=== PATIENT | male | born 1965 | race Asian ===

== ENCOUNTER 2018-07-19 11:40 | Emergency (ER) | payer OTHER ==
[2018-07-19 11:44] VITALS: BP 94/62; PULSE 63; TEMP 98; BMI 20.9
--- NOTE | 2018-07-19 13:13 | PDOC ---
History of Present Illness - General Chief Complaint: Injury Stated Complaint: INJURY, FALL - History of Present Illness Initial Comments: 53-year-old male with a history of dyslipidemia presents for evaluation of left wrist pain headache and nausea after a fall. States he was working slipped on the floor injured his left wrist in his head. He has no visual changes or vomiting post injury just dizziness and nausea. 07/19/18 13:11 Past History - Past Medical History Allergies/Adverse Reactions: Allergies Allergy/AdvReac Type Severity Reaction Status Date / Time No Known Allergies Allergy Verified 07/19/18 11:44 COPD: No Hypercholesterolemia: Yes - Suicide/Smoking/Psychosocial Hx Smoking History: Never smoked Review of Systems - Review of Systems ABD/GI: Yes: Nausea Musculoskeletal: Yes: See HPI, Joint Pain Neurological: Yes: Dizziness All Other Systems: Reviewed and Negative *Physical Exam - Vital Signs Last Vital Signs Temp Pulse Resp BP Pulse Ox 98 F 63 18 94/62 100 07/19/18 11:42 07/19/18 11:42 07/19/18 11:42 07/19/18 11:42 07/19/18 11:42 - Physical Exam Comments: HEAD: NC/AT EYES: Conjuntiva clear, EOMI, PERRL Ears: Canals and TM's normal NOSE: No d/c THROAT: Moist mucous membrances, oral pharanx clear, uvula midline NECK: Supple without adenopathy CARDIAC: S1 S2 LUNGS: CTA Full and Equal breath sounds ABDOMEN: Soft NT ND MS: Full ROM in all joints without edema left wrist is swollen there is tenderness at the distal radius. There are no gross sensorimotor deficits NEUROLOGIC: No gross sensory or motor deficits, NVID SKIN: Normal color and temperature no lesions or rashes 07/19/18 13:12 ED Treatment Course - RADIOLOGY Radiology Studies Ordered: Category Date Time Status HEAD CT WITHOUT CONTRAST [CT] Stat CT Scan 07/19/18 13:10 Ordered WRIST-LEFT [RAD] Stat Radiology 07/19/18 13:10 Ordered Medical Decision Making - Medical Decision Making There is impacted and shortened distal radius fracture without angulation as well as a distal ulnar fracture proximal to the styloid 07/19/18 13:54 07/19/18 14:50 CT head negative *DC/Admit/Observation/Transfer Diagnosis at time of Disposition: Wrist fracture, Closed head injury - Discharge Dispostion Disposition: HOME Condition at time of disposition: Stable Decision to Admit order: No - Referrals Referrals: Deidre Noyola MD [Primary Care Provider] - Juan M José MD [Staff Physician] - - Patient Instructions Printed Discharge Instructions: DI for Closed Head Injury, Wrist Fracture, DI for Wrist Fracture Additional Instructions: Return to the emergency room should you have any nausea vomiting or increasing headache. Follow-up with her primary care physician for further evaluation and treatment options of your closed head injury. Her CAT scan today was negative. States to take Tylenol for pain and headache as directed. Follow-up with orthopedic surgery in 2-3 days for further evaluation and treatment options of your left wrist fracture.Keep the splint clean and dry until seen by orthopedic surgery. - Post Discharge Activity
[2018-07-19] MEDS ORDERED: ACETAMINOPHEN 500 MG TABLET (FP) PO ONE (13:25)
[2018-07-19] MEDS ORDERED: ACETAMINOPHEN 500 MG TABLET (FP) ONE (13:33)
== END 2018-07-19 15:04 | disposition home or self-care (01) ==
LOC: JERFT 11:40
PROC: 2W3DX1Z Immobilization of Left Lower Arm using Splint (ICD-10-PCS; principal; 2018-07-19)
DX: S52.592A Other fractures of lower end of left radius, initial encounter for closed fracture (principal); S52.692A Other fracture of lower end of left ulna, initial encounter for closed fracture; S09.8XXA Other specified injuries of head, initial encounter; W01.0XXA Fall on same level from slipping, tripping and stumbling without subsequent striking against object, initial encounter; Y93.89 Activity, other specified; Y92.128 Other place in nursing home as the place of occurrence of the external cause; Y99.0 Civilian activity done for income or pay
CPT/HCPCS: 70450-TC; 73110-TC-LR-FY; 99282-25

== ENCOUNTER 2018-09-29 18:44 | Observation (INO) | payer OTHER ==
[2018-09-29] MEDS ORDERED: ONDANSETRON 4 MG/2 ML VIAL IVPUSH ONE (19:11)
[2018-09-29] MEDS ORDERED: FAMOTIDINE 20 MG/50 ML IVPB 20 MG/50 ML MG IVPB ONE ×2 (19:11→19:23)
[2018-09-29] MEDS ORDERED: SODIUM CHLORIDE 1,000 ML IV STA (19:11)
[2018-09-29] MEDS ORDERED: ONDANSETRON 4 MG/2 ML VIAL ONE (19:23)
[2018-09-29] MEDS ORDERED: ACETAMINOPHEN 1000 MG/100 ML VIAL (NON FORMULARY) IVPB ONE (19:23)
--- NOTE | 2018-09-29 19:23 | PDOC ---
History of Present Illness <ToribioMragareth - Last Filed: 09/29/18 21:37> - General History Source: Patient Exam Limitations: No Limitations - History of Present Illness Initial Comments: 09/29/18 21:20 CHARLETTE 53 YOM with a significant past medical history of HLD presenting with diffuse Abdominal pain, n/v/d x 3 days, multiple episodes and nonbloody. Today a /w generalized malaise, dizziness/lightheadedness, worse with getting up. AP described as achy and dull, diffuse, 4/10, exacerbated by eating food and drinking fluids. [employer] with sob and dizziness. Denies sick contacts or travel history. No antibiotic use. +kimchi intake on Tue night prior to presentation of symptoms. Denies change in urinary output. Denies recent travel. Denies recent antibiotic or medication use. On crestor for HLD. No surgeries. Denies tobacco, etoh or drug use. <Claire Francisco - Last Filed: 09/30/18 00:12> - General Chief Complaint: Nausea/Vomiting Stated Complaint: VOMITING Time Seen by Provider: 09/29/18 19:11 Past History <ToribioMargareth - Last Filed: 09/29/18 21:37> - Past Medical History COPD: No Hypercholesterolemia: Yes - Suicide/Smoking/Psychosocial Hx Smoking History: Never smoked Hx Alcohol Use: No Drug/Substance Use Hx: No Substance Use Type: None <FranciscoClaire Franciscomary - Last Filed: 09/30/18 00:12> - Past Medical History Allergies/Adverse Reactions: Allergies Allergy/AdvReac Type Severity Reaction Status Date / Time No Known Allergies Allergy Verified 07/19/18 11:44 Home Medications: Ambulatory Orders NK [No Known Home Medication] 07/19/18 Review of Systems - Review of Systems Able to Perform ROS?: Yes Comments:: 09/29/18 21:20 GENERAL/CONSTITUTIONAL: No fever or chills. No weakness. no sweats. HEAD, EYES, EARS, NOSE AND THROAT: No change in vision or hearing. No ear pain or discharge. No sore throat or mouth pain. No difficulty swallowing. No congestion. CARDIOVASCULAR: No chest pain or palpitations, syncope or edema. RESPIRATORY: + SOB. No cough, wheezing, or hemoptysis. GASTROINTESTINAL: + abdominal pain, nausea, vomiting, diarrhea. No bloody stools. GENITOURINARY: No hematuria, dysuria, frequency, urgency or other changes. MUSCULOSKELETAL: No joint or muscle swelling or pain. No neck or back pain. SKIN: No rash or changes in skin color or lesions. NEUROLOGIC: + dizziness, lightheadedness. No headache, loss of consciousness, or change in strength/sensation. No gait instability. HEMATOLOGIC/LYMPHATIC: No anemia, easy bruising/bleeding, or history of blood clots. ALLERGIC/IMMUNOLOGIC: No allergies All other systems reviewed and negative, or as documented in HPI. <Claire Francisco - Last Filed: 09/30/18 00:12> *Physical Exam - Vital Signs Last Vital Signs Temp Pulse Resp BP Pulse Ox 97.7 F 92 H 18 102/73 93 L 09/29/18 18:45 09/29/18 18:45 09/29/18 18:45 09/29/18 18:45 09/29/18 18:45 <Margareth Rooney - Last Filed: 09/29/18 21:37> - Vital Signs Last Vital Signs Temp Pulse Resp BP Pulse Ox 97.7 F 92 H 18 102/73 93 L 09/29/18 18:45 09/29/18 18:45 09/29/18 18:45 09/29/18 18:45 09/29/18 18:45 - Physical Exam Comments: 09/29/18 21:21 General: Malaised appearing. HEENT: NCAT, PERRL, EOMI, clear conjunctiva, anicteric, moist mucus membranes, clear oropharynx, no oral lesions.. Neck: neck supple, FROM Resp: CTAB, normal and even respirations, no respiratory distress CVS: RRR, no murmurs, 2+ peripheral pulses throughout, no peripheral edema Abdomen: soft. + voluntary guarding diffusely, +diffuse abdominal tenderness, + tympanic to palp. mildly distended. soft. Back: nontender, normal inspection and ROM/ no CVAT. MSK: no edema, DO x4, ROM intact. No clubbing or cyanosis. normal bulk and tone. Neuro: alert, oriented appropriately; no focal neurologic deficits Skin: warm and well perfused, cap refill <2 sec, normal color <Claire Francisco - Last Filed: 09/30/18 00:12> Heart Score/ECG Review - ECG Impressions Normal ECG: No Comment:: 09/29/18 21:44 EKG normal sinus rhythm, prolonged QT, narrow QRS, ST and T wave segments and morphology normal. TWI in precordial leads, V1-6, nonspecific flattening in I, AVL, no prior ekg. 09/29/18 23:24 <Claire Francisco - Last Filed: 09/30/18 00:12> ED Treatment Course - LABORATORY CBC & Chemistry Diagram: 09/29/18 19:15 09/29/18 19:15 - ADDITIONAL ORDERS Additional order review: Laboratory Results 09/29/18 19:15 Sodium 127 L Potassium 5.3 H Chloride 96 L Carbon Dioxide 18 L Anion Gap 13 BUN 34 H Creatinine 1.8 H Creat Clearance w eGFR 39.98 Random Glucose 116 H Calcium 9.9 Total Bilirubin 1.5 H AST 83 H ALT 74 H Alkaline Phosphatase 132 H Total Protein 9.3 H Albumin 4.8 Lipase 210 09/29/18 19:15 RBC 5.19 MCV 89.8 MCHC 33.8 RDW 13.4 MPV 7.7 Neutrophils % No Result Required. Lymphocytes % No Result Required. - Medications Given in the ED: ED Medications Discontinued Medications Generic Name Dose Route Start Last Admin Trade Name Dyana PRN Reason Stop Dose Admin Acetaminophen 1,000 mg 09/29/18 19:23 09/29/18 19:37 Ofirmev Injection - IVPB 09/29/18 19:24 1,000 mg ONCE ONE Administration Famotidine/Sodium Chloride 20 mg in 50 mls @ 100 mls/hr 09/29/18 19:11 19:30 Pepcid 20 Mg Premixed Ivpb - IVPB 09/29/18 19:40 100 mls/hr ONCE ONE Administration Sodium Chloride 1,000 mls @ 1,000 mls/hr 09/29/18 19:11 09/29/18 19:15 Normal Saline - IV 09/29/18 20:10 1,000 mls/hr ASDIR STA Administration Lactated Ringer's 1,000 ml 09/29/18 20:24 09/29/18 20:36 Lactated Ringers Solution IV 09/29/18 20:25 1,000 ml ONCE ONE Administration Ondansetron HCl 4 mg 09/29/18 19:11 09/29/18 19:25 Zofran Injection IVPUSH 09/29/18 19:12 4 mg ONCE ONE Administration <Margareth Rooney - Last Filed: 09/29/18 21:37> - LABORATORY CBC & Chemistry Diagram: 09/29/18 19:15 09/29/18 19:15 <FranciscoClaire Palacios - Last Filed: 09/30/18 00:12> Medical Decision Making - Medical Decision Making 09/29/18 21:26 MDM: CHARLETTE 53 YOM with no medical history Presenting with diffuse Abdominal pain, voluminous episodes of n/v/d x 3 days. +suspicious food intake. No other sick contacts or travel. DDx abdominal pain: Renal colic, biliary colic, metabolic/electrolyte derangements. GERD, PUD, esophageal spasm, pancreatitis, hepatitis, constipation , colitis, gastroenteritis, cholecystitis, UTI, pyelonephritis, ileus, SBO, medication side effect, hernia, appendicitis, diverticulitis, Vital signs reviewed, wnl. Mildly low sats 93%, likely from pain and poor inspiratory effort. Prior notes reviewed, including admissions, discharges and consultations. laboratory results and imaging reviewed, basic labs and lytes grossly abnormal, otable for +leukocytosis of 13K, STEPHIE with new elevation in Cr (unknown prior, but normal), up to 1.8, c/w prerenal/dehydrated and volume loss state. + hyponatremia, most likely hypovolemic in nature. LFTs mildly elevated. No recent abx use/travel history, lower likelihood of C diff in that setting; however +food precipitant, raising more likelihood of AGE vs acute colitis. lactate normal trop negative, less likely ACS. EKG with TWI in precordials, nonspecific abnormalities; prolonged QT, unknown prior. UA_pending. CXR_clear, no acute pathology visualized. no perf/free air Stool cultures ordered and sent, sample appears yellow and mucoid. ED course: Tylenol for analgesia, with relief down to 3/10. Pepcid, Zofran, 2L IVF for hydration. CT a/p with oral contrast only (new STEPHIE and borderline GFR, risk of renal insufficiency) to r/o intra abdominal pathology, perf, infection, colitis; still appearing malaised and dehydrated with multiple metabolic derangements, so will admit Dispo: admit for hydration, STEPHIE, hyponatremia/electrolyte derangements, colitis vs gastroenteritis. Continued medical management, hydration, supportive care PMD Dr. Houston, admit to hospitalist team, s/o to Dr. Jang 09/30/18 00:11 <Claire Francisco - Last Filed: 09/30/18 00:12> *DC/Admit/Observation/Transfer - Attestations Scribe Attestion: Documentation prepared by ANTONIO Waters, acting as medical coding instructor for Claire Francisco MD. 09/29/18 21:37 <Margareth Rooney - Last Filed: 09/29/18 21:37> - Discharge Dispostion Decision to Admit order: Yes Decision to Admit order Date/Time: 09/29/18 21:30 Decision to Admit Order Category Date Time Status Decision to Admit to Hospital Routine Admission 09/29/18 21:28 Ordered - Attestations Physician Attestion: 09/29/18 19:28 I, Claire Francisco MD, attest that this document has been prepared under my direction and personally reviewed by me in its entirety. I further attest, that it accurately reflects all work, treatment, procedures and medical decision -making performed by me. <Claire Francisco - Last Filed: 09/30/18 00:12> Diagnosis at time of Disposition: STEPHIE (acute kidney injury), Hyponatremia, Dehydration, Nausea vomiting and diarrhea - Discharge Dispostion Condition at time of disposition: Guarded - Referrals Referrals: Ravindra Paez MD [Primary Care Provider] - - Patient Instructions - Post Discharge Activity
[2018-09-29] MEDS ORDERED: ACETAMINOPHEN INJECTION 100 ML IVPB ONE (19:31)
[2018-09-29 19:38] LABS: HEMATOCRIT 46.6 % (35.4-49); HEMOGLOBIN 15.7 GM/dl (11.7-16.9); MCH 30.3 pg (25.7-33.7); MCHC 33.8 g/dl (32.0-35.9); MEAN CELL VOLUME 89.8 fl (80-96); MEAN PLT VOLUME 7.7 fl (7.5-11.1); PLATELET COUNT 381 K/MM3 (134-434); RBC 5.19 M/mm3 (4.00-5.60); RDW 13.4 % (11.9-15.9); WHITE BLOOD COUNT 13.6 K/mm3 (4.0-10.8)
[2018-09-29 19:48] LABS: ALBUMIN 4.8 g/dl (3.5-5.0); ALK PHOS 132 U/L (32-92); ANION GAP 13 MMOL/L (8-16); BILIRUBIN,TOTAL 1.5 mg/dl (0.2-1.0); BLOOD UREA NITROGEN 34 mg/dl (7-18); CALCIUM 9.9 mg/dl (8.4-10.2); CHLORIDE 96 mmol/L (98-107); CO2 18 mmol/L (22-28); CREATININE 1.8 mg/dl (0.6-1.3); GLUCOSE,RANDOM 116 mg/dl (74-106); SGOT/AST 83 U/L (10-42); SGPT/ALT 74 U/L (10-40); SODIUM 127 mmol/L (136-145); TOT PROT 9.3 g/dl (6.4-8.3)
[2018-09-29 19:51] LABS: POTASSIUM 5.3 mmol/L (3.5-5.1)
[2018-09-29] MEDS ORDERED: LACTATED RINGERS SOLUTION 1000 ML INFUS.BAG IV ONE (20:24)
[2018-09-29 20:38] LABS: PLATELET ESTIMATE ADEQUATE
[2018-09-29 21:24] LABS: LIPASE 210 U/L (73-393)
--- NOTE | 2018-09-29 21:56 | HP ---
CHIEF COMPLAINT: diarrhea, nausea, vomiting PCP: Ravindra Paez HISTORY OF PRESENT ILLNESS: 53 YO M with a significant past medical history of HLD presented with diffuse diarrhea, nausea, vomiting x 3 days, multiple episodes and nonbloody, 4 BMs/ day. PAtient reported eating at [place] 2 days before symptom started. No one else ate with him who had same symptoms. No recent travels. Denied any previous electrolyte or kidney problems. Said he had normal blood tests last june with PCP. ER course was notable for: (1) IV fluid hydration (2) Ekg (3) Recent Travel: none PAST MEDICAL HISTORY: high cholesterol PAST SURGICAL HISTORY: none Social History: Smoking: no Alcohol: no Drugs: no Family History: Allergies No Known Allergies Allergy (Verified 07/19/18 11:44) HOME MEDICATIONS: Home Medications Medication Instructions Recorded NK [No Known Home Medication] 07/19/18 REVIEW OF SYSTEMS CONSTITUTIONAL: Absent: fever, chills, diaphoresis, generalized weakness, malaise, loss of appetite, weight change HEENT: Absent: rhinorrhea, nasal congestion, throat pain, throat swelling, difficulty swallowing, mouth swelling, ear pain, eye pain, visual changes CARDIOVASCULAR: Absent: chest pain, syncope, palpitations, irregular heart rate, lightheadedness , peripheral edema RESPIRATORY: Absent: cough, shortness of breath, dyspnea with exertion, orthopnea, wheezing, stridor, hemoptysis GASTROINTESTINAL: Absent: abdominal pain, abdominal distension, constipation, melena, hematochezia Present - nausea, vomiting, diarrhea, GENITOURINARY: Absent: dysuria, frequency, urgency, hesitancy, hematuria, flank pain, genital pain MUSCULOSKELETAL: Absent: myalgia, arthralgia, joint swelling, back pain, neck pain SKIN: Absent: rash, itching, pallor HEMATOLOGIC/IMMUNOLOGIC: Absent: easy bleeding, easy bruising, lymphadenopathy, frequent infections ENDOCRINE: Absent: unexplained weight gain, unexplained weight loss, heat intolerance, cold intolerance NEUROLOGIC: Absent: headache, focal weakness or paresthesias, dizziness, unsteady gait, seizure, mental status changes, bladder or bowel incontinence PSYCHIATRIC: Absent: anxiety, depression, suicidal or homicidal ideation, hallucinations. PHYSICAL EXAMINATION Vital Signs - 24 hr 09/29/18 18:45 Temperature 97.7 F Pulse Rate 92 H Respiratory 18 Rate Blood Pressure 102/73 O2 Sat by Pulse 93 L Oximetry (%) GENERAL: Awake, alert, and fully oriented, in no acute distress. HEAD: Normal with no signs of trauma. EYES: Pupils equal, round and reactive to light, extraocular movements intact, sclera anicteric, conjunctiva clear. No lid lag. EARS, NOSE, THROAT: Ears normal, nares patent, oropharynx clear without exudates. Moist mucous membranes. NECK: Normal range of motion, supple without lymphadenopathy, JVD, or masses. LUNGS: Breath sounds equal, clear to auscultation bilaterally. No wheezes, and no crackles. No accessory muscle use. HEART: Regular rate and rhythm, normal S1 and S2 without murmur, rub or gallop. ABDOMEN: Soft, nontender, not distended, normoactive bowel sounds, no guarding, no rebound, no masses. No hepatomegaly or splenomegaly. MUSCULOSKELETAL: Normal range of motion at all joints. No bony deformities or tenderness. No CVA tenderness. UPPER EXTREMITIES: 2+ pulses, warm, well-perfused. No cyanosis. No clubbing. No peripheral edema. LOWER EXTREMITIES: 2+ pulses, warm, well-perfused. No calf tenderness. No peripheral edema. NEUROLOGICAL: Cranial nerves II-XII intact. Normal speech. Normal gait. PSYCHIATRIC: Cooperative. Good eye contact. Appropriate mood and affect. SKIN: Warm, dry, poor turgor Laboratory Results - last 24 hr 09/29/18 09/29/18 19:15 19:15 WBC 13.6 H RBC 5.19 Hgb 15.7 Hct 46.6 MCV 89.8 MCH 30.3 MCHC 33.8 RDW 13.4 Plt Count 381 MPV 7.7 Absolute Neuts (auto) 9.3 Neutrophils % No Result Required. Neutrophils % (Manual) 78.0 Band Neutrophils % 4.0 Lymphocytes % No Result Required. Lymphocytes % (Manual) 16.0 Eosinophils % (Manual) 2.0 Platelet Estimate Adequate Sodium 127 L Potassium 5.3 H Chloride 96 L Carbon Dioxide 18 L Anion Gap 13 BUN 34 H Creatinine 1.8 H Creat Clearance w eGFR 39.98 Random Glucose 116 H Calcium 9.9 Total Bilirubin 1.5 H AST 83 H ALT 74 H Alkaline Phosphatase 132 H Total Protein 9.3 H Albumin 4.8 Lipase 210 ASSESSMENT/PLAN: 53yo man with likely acute gastroenteritis x3 days complicated by STEPHIE and hyponatremia. Gastroenteritis likely due to food poisoning. Doubt Cdiff as no recent antibiotics. STEPHIE likely prerenal secondary to dehydration. Although no previous labs to compare to baseline, these are probably acute as patient stated he had normal blood tests done at his PCPs office this past June. -admit to med/surg -CT of abdomen/pelvis with PO contrast -if severe inflammation will treat with antibioitics -send lactate -send stool cdiff pcr, culture, wbc count -trend sodium -correct sodium no more than 10meq in 24hrs -IV fluid hydration -LR -hold antiemetics for now as qtc is prolonged -renal U/S -urine lytes/ creatinine -i/o -daily weights -avoid neophrotoxic meds -clear liquid diet and advance as tolerated -heparin sc for dvt ppx Visit type - Emergency Visit Emergency Visit: Yes Care time: The patient presented to the Emergency Department on the above date and was hospitalized for further evaluation of their emergent condition. - New Patient This patient is new to me today: Yes Date on this admission: 09/29/18 - Critical Care Critical Care patient: No
[2018-09-29] MEDS ORDERED: LACTATED RINGERS SOLUTION 1,000 ML IV SCH (23:00)
[2018-09-30] MEDS ORDERED: SODIUM CHLORIDE 1,000 ML IV SCH (00:30)
[2018-09-30 04:42] VITALS: BMI 21.1
[2018-09-30 09:09] LABS: POTASSIUM 3.6 mmol/L (3.5-5.1)
[2018-09-30 09:16] LABS: ALBUMIN 3.5 g/dl (3.5-5.0); ALK PHOS 97 U/L (32-92); ANION GAP 7 MMOL/L (8-16); BILIRUBIN,TOTAL 0.8 mg/dl (0.2-1.0); BLOOD UREA NITROGEN 23 mg/dl (7-18); CALCIUM 8.8 mg/dl (8.4-10.2); CHLORIDE 106 mmol/L (98-107); CO2 20 mmol/L (22-28); CREATININE 1.1 mg/dl (0.6-1.3); GLUCOSE,RANDOM 89 mg/dl (74-106); POTASSIUM 3.6 mmol/L (3.5-5.1); SGOT/AST 45 U/L (10-42); SGPT/ALT 47 U/L (10-40); SODIUM 133 mmol/L (136-145); TOT PROT 6.8 g/dl (6.4-8.3)
[2018-09-30 09:33] LABS: BASO % 0.6 % (0-2.0); EOS % 1.3 % (0-4.5); HEMATOCRIT 33.8 % (35.4-49); HEMOGLOBIN 11.9 GM/dl (11.7-16.9); LYMPH % 19.8 % (8-40); MCH 31.6 pg (25.7-33.7); MCHC 35.3 g/dl (32.0-35.9); MEAN CELL VOLUME 89.8 fl (80-96); MEAN PLT VOLUME 7.4 fl (7.5-11.1); MONO % 5.7 % (3.8-10.2); NEUT % 72.6 % (42.8-82.8); PLATELET COUNT 293 K/MM3 (134-434); RBC 3.77 M/mm3 (4.00-5.60); WHITE BLOOD COUNT 7.7 K/mm3 (4.0-10.8)
[2018-09-30] MEDS: HEPARIN NA (PORCINE) 5,000 UNITS/ML 1ML VIAL SQ SCH ×2 (09:49→21:18)
--- NOTE | 2018-09-30 15:41 | PN ---
Physical Exam: SUBJECTIVE: Patient seen and examined at beside. Had 4 episodes watery diarrhea overnight, 6 more today. OBJECTIVE: Vital Signs Period Temp Pulse Resp BP Sys/[place]valcaba Pulse Ox Last 24 Hr 97.7 F-98.8 F 68-92 16-20 89-108/60-73 93-100 GENERAL: The patient is awake, alert, and fully oriented, in no acute distress. LUNGS: Breath sounds equal, clear to auscultation bilaterally, no wheezes, no crackles, no accessory muscle use. HEART: Regular rate and rhythm, S1, S2 without murmur, rub or gallop. ABDOMEN: Soft, nontender, nondistended, normoactive bowel sounds EXTREMITIES: 2+ pulses, warm, well-perfused, no edema. NEUROLOGICAL: Cranial nerves II through XII grossly intact. Laboratory Results - last 24 hr 09/29/18 09/29/18 09/29/18 19:15 19:15 22:01 WBC 13.6 H RBC 5.19 Hgb 15.7 Hct 46.6 MCV 89.8 MCH 30.3 MCHC 33.8 RDW 13.4 Plt Count 381 MPV 7.7 Absolute Neuts (auto) 9.3 Neutrophils % No Result Required. Neutrophils % (Manual) 78.0 Band Neutrophils % 4.0 Lymphocytes % No Result Required. Lymphocytes % (Manual) 16.0 Monocytes % Eosinophils % Eosinophils % (Manual) 2.0 Basophils % Platelet Estimate Adequate Sodium 127 L Potassium 5.3 H Chloride 96 L Carbon Dioxide 18 L Anion Gap 13 BUN 34 H Creatinine 1.8 H Creat Clearance w eGFR 39.98 Random Glucose 116 H Lactic Acid 1.8 Calcium 9.9 Total Bilirubin 1.5 H AST 83 H ALT 74 H Alkaline Phosphatase 132 H Troponin I Total Protein 9.3 H Albumin 4.8 Lipase 210 09/29/18 09/30/18 09/30/18 22:05 07:10 07:10 WBC 7.7 RBC 3.77 L Hgb 11.9 Hct 33.8 L D MCV 89.8 MCH 31.6 MCHC 35.3 RDW 13.0 Plt Count 293 D MPV 7.4 L Absolute Neuts (auto) 5.7 Neutrophils % 72.6 Neutrophils % (Manual) Band Neutrophils % Lymphocytes % 19.8 Lymphocytes % (Manual) Monocytes % 5.7 Eosinophils % 1.3 Eosinophils % (Manual) Basophils % 0.6 Platelet Estimate Sodium 133 L Potassium 3.6 D Chloride 106 D Carbon Dioxide 20 L Anion Gap 7 L BUN 23 H Creatinine 1.1 Creat Clearance w eGFR > 60 Random Glucose 89 D Lactic Acid Calcium 8.8 Total Bilirubin 0.8 AST 45 H D ALT 47 H D Alkaline Phosphatase 97 H D Troponin I < 0.03 Total Protein 6.8 D Albumin 3.5 Lipase 09/30/18 07:10 WBC RBC Hgb Hct MCV MCH MCHC RDW Plt Count MPV Absolute Neuts (auto) Neutrophils % Neutrophils % (Manual) Band Neutrophils % Lymphocytes % Lymphocytes % (Manual) Monocytes % Eosinophils % Eosinophils % (Manual) Basophils % Platelet Estimate Sodium 132 L Potassium 3.6 Chloride 106 Carbon Dioxide 20 L Anion Gap 6 L BUN Creatinine Creat Clearance w eGFR Random Glucose Lactic Acid Calcium Total Bilirubin AST ALT Alkaline Phosphatase Troponin I Total Protein Albumin Lipase Active Medications Generic Name Dose Route Start Last Admin Trade Name Freq PRN Reason Stop Dose Admin Heparin Sodium (Porcine) 5,000 unit 09/30/18 10:00 09/30/18 09:49 Heparin - SQ 5,000 unit BID JULIANN Administration Sodium Chloride 1,000 mls @ 83 mls/hr 09/30/18 00:30 09/30/18 00:32 Normal Saline - IV 83 mls/hr ASDIR JULIANN Administration ASSESSMENT/PLAN 53 year-old male with a PMH significant for HLD placed on observation for diarrhea. Diarrhea --likely due to an acute gastroenteritis --09/30 CTAP: minimal patulous nature of the terminal ileum and minimal mural thickening of the distal ileum, early ileitis cannot be excluded --c.diff negative --stool culture pending --afebrile, leukocytosis present on admission has resolved, lactic acid wnl; continue to observe off antibiotics --IV fluids Hyponatremia --improving STEPHIE, resolved --Cr 1.8 on admission, now 1.1 Hyperlipidemia --not on statin therapy FEN Fluids: NS @ 125mL/hr Electrolytes: replete as indicated Nutrition: clears DVT prophylaxis: subq heparin Dispo: continues to require observation. Full code. Visit type - Emergency Visit Emergency Visit: Yes ED Registration Date: 09/30/18 Care time: The patient presented to the Emergency Department on the above date and was hospitalized for further evaluation of their emergent condition. - New Patient This patient is new to me today: Yes Date on this admission: 09/30/18 - Critical Care Critical Care patient: No
[2018-09-30] MEDS ORDERED: SODIUM CHLORIDE 1,000 ML IV STA (17:54)
[2018-09-30] MEDS: SODIUM CHLORIDE 1,000 ML IV SCH (20:55)
[2018-10-01 09:26] LABS: BASO % 0.6 % (0-2.0); EOS % 1.9 % (0-4.5); HEMATOCRIT 35.9 % (35.4-49); HEMOGLOBIN 12.2 GM/dl (11.7-16.9); LYMPH % 22.6 % (8-40); MCH 30.8 pg (25.7-33.7); MEAN CELL VOLUME 90.7 fl (80-96); MEAN PLT VOLUME 7.8 fl (7.5-11.1); MONO % 8.5 % (3.8-10.2); NEUT % 66.4 % (42.8-82.8); PLATELET COUNT 293 K/MM3 (134-434); RBC 3.96 M/mm3 (4.00-5.60); RDW 13.4 % (11.9-15.9); WHITE BLOOD COUNT 6.4 K/mm3 (4.0-10.8)
[2018-10-01 09:49] LABS: ALBUMIN 3.7 g/dl (3.5-5.0); ALK PHOS 98 U/L (32-92); ANION GAP 9 MMOL/L (8-16); BILIRUBIN,TOTAL 0.9 mg/dl (0.2-1.0); BLOOD UREA NITROGEN 13 mg/dl (7-18); CALCIUM 9.1 mg/dl (8.4-10.2); CHLORIDE 107 mmol/L (98-107); CO2 19 mmol/L (22-28); CREATININE 0.8 mg/dl (0.6-1.3); GLUCOSE,RANDOM 86 mg/dl (74-106); MAGNESIUM 1.5 mg/dL (1.8-2.4); POTASSIUM 4.3 mmol/L (3.5-5.1); SGOT/AST 45 U/L (10-42); SGPT/ALT 44 U/L (10-40); SODIUM 135 mmol/L (136-145); TOT PROT 7.3 g/dl (6.4-8.3)
[2018-10-01] MEDS: HEPARIN NA (PORCINE) 5,000 UNITS/ML 1ML VIAL SQ SCH ×2 (10:11→22:06)
[2018-10-01] MEDS ORDERED: MAGNESIUM SULF 50% (8.12 MEQ/2 ML-1 GM VIAL) IVPB ONE (10:21)
--- NOTE | 2018-10-01 10:37 | PN ---
Physical Exam: SUBJECTIVE: Patient seen and examined, still having diarrhea, 3x overnight. OBJECTIVE: Vital Signs Period Temp Pulse Resp BP Sys/Ruvalcaba Pulse Ox Last 24 Hr 97.5 F-98.5 F 64-76 16-19 89-100/54-66 95-97 GENERAL: The patient is awake, alert, and fully oriented, in no acute distress. HEAD: Normal with no signs of trauma. EYES: PERRL, extraocular movements intact, sclera anicteric, conjunctiva clear. No ptosis. ENT: Ears normal, nares patent, oropharynx clear without exudates, moist mucous membranes. NECK: Trachea midline, full range of motion, supple. LUNGS: Breath sounds equal, clear to auscultation bilaterally, no wheezes, no crackles, no accessory muscle use. HEART: Regular rate and rhythm, S1, S2 without murmur, rub or gallop. ABDOMEN: Soft, nontender, nondistended, normoactive bowel sounds, no guarding, no rebound, no hepatosplenomegaly, no masses. EXTREMITIES: 2+ pulses, warm, well-perfused, no edema. NEUROLOGICAL: Cranial nerves II through XII grossly intact. Normal speech, gait not observed. PSYCH: Normal mood, normal affect. SKIN: Warm, dry, normal turgor, no rashes or lesions noted Laboratory Results - last 24 hr 09/30/18 10/01/18 10/01/18 15:50 06:00 06:00 WBC 6.4 RBC 3.96 L Hgb 12.2 Hct 35.9 MCV 90.7 MCH 30.8 MCHC 34.0 RDW 13.4 Plt Count 293 MPV 7.8 Absolute Neuts (auto) 4.4 Neutrophils % 66.4 Lymphocytes % 22.6 Monocytes % 8.5 Eosinophils % 1.9 Basophils % 0.6 Sodium 135 L Potassium 4.3 Chloride 107 Carbon Dioxide 19 L Anion Gap 9 BUN 13 Creatinine 0.8 Creat Clearance w eGFR > 60 Random Glucose 86 Calcium 9.1 Magnesium 1.5 L Total Bilirubin 0.9 AST 45 H ALT 44 H Alkaline Phosphatase 98 H Total Protein 7.3 Albumin 3.7 Urine Creatinine < 12.0 Active Medications Generic Name Dose Route Start Last Admin Trade Name Freq PRN Reason Stop Dose Admin Heparin Sodium (Porcine) 5,000 unit 09/30/18 10:00 09/30/18 21:18 Heparin - SQ 5,000 unit BID JULIANN Administration Sodium Chloride 1,000 mls @ 125 mls/hr 09/30/18 18:53 09/30/18 20:55 Normal Saline - IV 125 mls/hr ASDIR JULIANN Administration ASSESSMENT/PLAN: 53 year-old male with a PMH significant for HLD placed on observation for diarrhea. Diarrhea --likely due to an acute gastroenteritis --09/30 CTAP: minimal patulous nature of the terminal ileum and minimal mural thickening of the distal ileum, early ileitis cannot be excluded --c.diff negative --stool culture pending --afebrile, leukocytosis present on admission has resolved, lactic acid wnl; continue to observe off antibiotics --IV fluids Hyponatremia --improving Hypomagensia -- 2 gram Mag sulfate ordered STEPHIE, resolved --Cr 1.8 on admission, now 0.8 Hyperlipidemia --not on statin therapy FEN Fluids: NS @ 125mL/hr Electrolytes: replete as indicated Nutrition: clears DVT prophylaxis: subq heparin Dispo: continues to require observation. Full code. Visit type - Emergency Visit Emergency Visit: Yes ED Registration Date: 09/29/18 Care time: The patient presented to the Emergency Department on the above date and was hospitalized for further evaluation of their emergent condition. - New Patient This patient is new to me today: Yes Date on this admission: 10/01/18 - Critical Care Critical Care patient: No
[2018-10-01] MEDS: SODIUM CHLORIDE 1,000 ML IV SCH (22:06)
[2018-10-02 08:51] LABS: BASO % 1.4 % (0-2.0); EOS % 3.6 % (0-4.5); HEMATOCRIT 33.2 % (35.4-49); HEMOGLOBIN 11.6 GM/dl (11.7-16.9); LYMPH % 35.4 % (8-40); MCH 31.6 pg (25.7-33.7); MEAN CELL VOLUME 90.4 fl (80-96); MEAN PLT VOLUME 7.6 fl (7.5-11.1); MONO % 7.7 % (3.8-10.2); NEUT % 51.9 % (42.8-82.8); PLATELET COUNT 280 K/MM3 (134-434); RBC 3.67 M/mm3 (4.00-5.60); RDW 12.9 % (11.9-15.9); WHITE BLOOD COUNT 6.4 K/mm3 (4.0-10.8)
[2018-10-02 09:05] LABS: ALBUMIN 3.9 g/dl (3.5-5.0); ALK PHOS 107 U/L (32-92); ANION GAP 10 MMOL/L (8-16); BILIRUBIN,TOTAL 0.8 mg/dl (0.2-1.0); BLOOD UREA NITROGEN 9 mg/dl (7-18); CALCIUM 9.1 mg/dl (8.4-10.2); CHLORIDE 107 mmol/L (98-107); CO2 21 mmol/L (22-28); CREATININE 0.7 mg/dl (0.6-1.3); GLUCOSE,RANDOM 82 mg/dl (74-106); POTASSIUM 3.9 mmol/L (3.5-5.1); SGOT/AST 48 U/L (10-42); SGPT/ALT 43 U/L (10-40); SODIUM 138 mmol/L (136-145); TOT PROT 7.6 g/dl (6.4-8.3)
[2018-10-02] MEDS: HEPARIN NA (PORCINE) 5,000 UNITS/ML 1ML VIAL SQ SCH (09:24)
[2018-10-02] MEDS ORDERED: MAGNESIUM SULF 50% (8.12 MEQ/2 ML-1 GM VIAL) IVPB ONE (10:52)
[2018-10-02] MEDS ORDERED: MAGNESIUM SULFATE IN WATER 2 GM/50 ML IVPB IVPB ONE (11:00)
--- NOTE | 2018-10-02 12:34 | DS ---
Physical Exam: SUBJECTIVE: Patient seen and examined OBJECTIVE: Vital Signs Period Temp Pulse Resp BP Sys/Ruvalcaba Pulse Ox Last 24 Hr 97.7 F-97.9 F 62-71 16-20 84-102/56-74 99-100 PHYSICAL EXAM GENERAL: The patient is awake, alert, and fully oriented, in no acute distress. HEAD: Normal with no signs of trauma. EYES: PERRL, extraocular movements intact, sclera anicteric, conjunctiva clear. ENT: Ears normal, nares patent, oropharynx clear without exudates, moist mucous membranes. NECK: Trachea midline, full range of motion, supple. LUNGS: Breath sounds equal, clear to auscultation bilaterally, no wheezes, no crackles, no accessory muscle use. HEART: Regular rate and rhythm, S1, S2 without murmur, rub or gallop. ABDOMEN: Soft, nontender, nondistended, normoactive bowel sounds, no guarding, no rebound, no hepatosplenomegaly, no masses. EXTREMITIES: 2+ pulses, warm, well-perfused, no edema. NEUROLOGICAL: Cranial nerves II through XII grossly intact. Normal speech, gait not observed. PSYCH: Normal mood, normal affect. SKIN: Warm, dry, normal turgor, no rashes or lesions noted. LABS Laboratory Results - last 24 hr 10/02/18 10/02/18 10/02/18 08:24 08:24 10:02 WBC 6.4 RBC 3.67 L Hgb 11.6 L Hct 33.2 L MCV 90.4 MCH 31.6 MCHC 35.0 RDW 12.9 Plt Count 280 MPV 7.6 Absolute Neuts (auto) 3.3 Neutrophils % 51.9 D Lymphocytes % 35.4 D Monocytes % 7.7 Eosinophils % 3.6 D Basophils % 1.4 Sodium 138 Potassium 3.9 Chloride 107 Carbon Dioxide 21 L Anion Gap 10 BUN 9 Creatinine 0.7 Creat Clearance w eGFR > 60 Random Glucose 82 Calcium 9.1 Magnesium 1.5 L Total Bilirubin 0.8 AST 48 H ALT 43 H Alkaline Phosphatase 107 H Total Protein 7.6 Albumin 3.9 HOSPITAL COURSE: Date of Admission:09/29/18 Date of Discharge: 10/02/18 Minutes to complete discharge: 35 Discharge Summary Reason For Visit: N/V/D STEPHIE HYPONATREMIA Current Active Problems STEPHIE (acute kidney injury) (Acute) Dehydration (Acute) Hyponatremia (Acute) Nausea vomiting and diarrhea (Acute) Condition: Improved - Instructions Referrals: Ravindra Paez MD [Primary Care Provider] - Disposition: HOME - Home Medications Comprehensive Discharge Medication List: Ambulatory Orders NK [No Known Home Medication] 07/19/18 This patient is new to me today: No Emergency Visit: Yes ED Registration Date: 09/29/18 Care time: The patient presented to the Emergency Department on the above date and was hospitalized for further evaluation of their emergent condition. Critical Care patient: No - Discharge Referral Referred to [facility] Yes Physician Referral: Ravindra Posey MD ([facility])
[2018-10-02 14:04] VITALS: BP 108/66; PULSE 74; TEMP 98.6
--- NOTE | 2018-10-02 23:52 | EKG ---
Test Reason : Blood Pressure : / mmHG Vent. Rate : 085 BPM Atrial Rate : 085 BPM P-R Int : 198 ms QRS Dur : 106 ms QT Int : 474 ms P-R-T Axes : 035 -60 048 degrees QTc Int : 564 ms NORMAL SINUS RHYTHM LEFT ANTERIOR FASCICULAR BLOCK T WAVE ABNORMALITY, CONSIDER ANTERIOR ISCHEMIA PROLONGED QT ABNORMAL ECG NO PREVIOUS ECGS AVAILABLE Confirmed by LILY NGUYEN MD ([id number]) on 10/02/2018 11:52:07 PM Referred By: MD LIEBERMAN Confirmed By:LILY NGUYEN MD
== END 2018-10-02 13:25 | disposition home or self-care (01) ==
LOC: FER 18:44 → FM/S 23:10 → UNDOADMOB 09-30 02:43
PROVIDERS: ADMIT Internal Medicine; ATTEND Nurse Practitioner Acute Care
PROC: 3E033GC Introduction of Other Therapeutic Substance into Peripheral Vein, Percutaneous Approach (ICD-10-PCS; principal; 2018-09-29)
PROC: 3E0337Z Introduction of Electrolytic and Water Balance Substance into Peripheral Vein, Percutaneous Approach (ICD-10-PCS; 2018-09-29)
PROC: 3E033NZ Introduction of Analgesics, Hypnotics, Sedatives into Peripheral Vein, Percutaneous Approach (ICD-10-PCS; 2018-09-29)
DX: N17.9 Acute kidney failure, unspecified (principal); E87.1 Hypo-osmolality and hyponatremia; E86.0 Dehydration; R11.2 Nausea with vomiting, unspecified; R19.7 Diarrhea, unspecified; E78.5 Hyperlipidemia, unspecified
CPT/HCPCS: 36415; 71046-TC-FY; 74176-TC; 76775-TC; 80051; 80053; 82570; 83605; 83690; 83735; 84484; 85025; 87324; 87449; 93005; 96361; 96365; 96367; 96372; 96375; 99284-25; G0378; J0131; J1644; J7030

== ENCOUNTER 2019-01-02 17:55 | Emergency (ER) | payer OTHER ==
[2019-01-02 18:01] VITALS: BP 118/66; PULSE 68; BMI 20.3
[2019-01-02] MEDS ORDERED: KETOROLAC TROMETHAMINE 30 MG/1 ML VIAL IM ONE (18:12)
[2019-01-02] MEDS ORDERED: KETOROLAC TROMETHAMINE 30 MG/1 ML VIAL ONE (18:16)
--- NOTE | 2019-01-02 18:52 | PDOC ---
Attending Attestation - Resident Resident Name: Alma Gomez - ED Attending Attestation I have performed the following: I have examined & evaluated the patient, The case was reviewed & discussed with the resident, I agree w/resident's findings & plan - HPI HPI: 01/02/19 18:50 53-year-old male with history of hypertension presents with 3 days of chills with progressive sore throat, odynophagia. No nasal congestion, no ear pain, no cough, no difficulty breathing or voice change. Taking Tylenol with only slight relief of fever and pain, presents for evaluation. No history of recurring pharyngitis. - Physicial Exam PE: 01/02/19 18:50 Fever on exam, hemodynamically stable otherwise Warm to touch, mild discomfort secondary to throat pain, but speaking full sentences and controlling secretions Oropharynx erythematous with slight exudate on the posterior pharynx, uvula midline with mild to moderate tonsillar enlargement. Bilateral submandibular and anterior cervical lymphadenopathy, neck is otherwise supple Lungs are clear without wheezing, heart is regular Abdomen benign without hepatosplenomegaly Neurologically intact - Medical Decision Making 01/02/19 18:51 53-year-old male with clinical strep pharyngitis, nontoxic and without airway compromise. Toradol for fever and pain/swelling Rapid strep sent and negative but we'll treat clinically with antibiotics Understands return criteria
--- NOTE | 2019-01-02 19:07 | PDOC ---
History of Present Illness - General Chief Complaint: Sore Throat Stated Complaint: SORE THROAT Time Seen by Provider: 01/02/19 18:10 Past History - Past Medical History Allergies/Adverse Reactions: Allergies Allergy/AdvReac Type Severity Reaction Status Date / Time No Known Allergies Allergy Verified 01/02/19 17:56 Home Medications: Ambulatory Orders Amoxicillin - [Amoxicillin 500mg Capsule -] 500 mg PO BID #20 capsule 01/02/19 Fenofibrate 150 mg PO DAILY 01/02/19 COPD: No Hypercholesterolemia: Yes - Suicide/Smoking/Psychosocial Hx Smoking History: Never smoked Have you smoked in the past 12 months: No Information on smoking cessation initiated: No Hx Alcohol Use: No Drug/Substance Use Hx: No Substance Use Type: None *Physical Exam - Vital Signs Last Vital Signs Temp Pulse Resp BP Pulse Ox 100.9 F H 68 18 118/66 98 01/02/19 17:55 01/02/19 17:55 01/02/19 17:55 01/02/19 17:55 01/02/19 17:55 Moderate Sedation - Procedure Monitoring Vital Signs: Procedure Monitoring Vital Signs Temperature 100.9 F H 01/02/19 17:55 Pulse Rate 68 01/02/19 17:55 Respiratory Rate 18 01/02/19 17:55 Blood Pressure 118/66 01/02/19 17:55 O2 Sat by Pulse Oximetry (%) 98 01/02/19 17:55 ED Treatment Course - Medications Given in the ED: ED Medications Discontinued Medications Generic Name Dose Route Start Last Admin Trade Name Dyana PRN Reason Stop Dose Admin Ketorolac Tromethamine 30 mg 01/02/19 18:12 01/02/19 18:20 Toradol Injection - IM 01/02/19 18:13 30 mg ONCE ONE Administration *DC/Admit/Observation/Transfer Diagnosis at time of Disposition: Strep pharyngitis - Discharge Dispostion Disposition: HOME Condition at time of disposition: Improved Decision to Admit order: No - Prescriptions Prescriptions: Amoxicillin - [Amoxicillin 500mg Capsule -] 500 mg PO BID #20 capsule - Referrals Referrals: Deidre Noyola MD [Primary Care Provider] - - Patient Instructions Printed Discharge Instructions: DI for Strep Throat Additional Instructions: Pelase take the antibiotics twice a day. Please use ibuprofen and Tylenol every 4-6 hours for the pain and fever. Please follow up with your PCP if you have any further questions. Please return to the ED if you have new or worsening symptoms. - Post Discharge Activity
[2019-01-02] MEDS ORDERED: ACETAMINOPHEN 500 MG TABLET (FP) PO ONE (19:14)
[2019-01-02] MEDS ORDERED: ACETAMINOPHEN 500 MG TABLET (FP) ONE (19:18)
[2019-01-02] MEDS ORDERED: AMOXICILLIN 250 MG CAPSULE ONE ×2 (19:21→19:47)
[2019-01-02] MEDS ORDERED: AMOXICILLIN 500 MG CAPSULE (FP) PO ONE (19:21)
[2019-01-02 19:47] VITALS: TEMP 99.1
== END 2019-01-02 19:53 | disposition home or self-care (01) ==
LOC: FER 17:55
PROC: 3E0233Z Introduction of Anti-inflammatory into Muscle, Percutaneous Approach (ICD-10-PCS; principal; 2019-01-02)
PROC: 3E0233Z Introduction of Anti-inflammatory into Muscle, Percutaneous Approach (ICD-10-PCS; 2019-01-02)
DX: J02.0 Streptococcal pharyngitis (principal); E78.00 Pure hypercholesterolemia, unspecified
CPT/HCPCS: 87070; 87804; 87880; 96372; 99283-25

== ENCOUNTER 2020-01-24 11:23 | Emergency (ER) | payer OTHER ==
[2020-01-24 11:30] VITALS: BP 125/74; PULSE 88; TEMP 99.2; BMI 30.2
--- NOTE | 2020-01-24 11:32 | PDOC ---
History of Present Illness - General Chief Complaint: Sore Throat Stated Complaint: SORE THROAT Time Seen by Provider: 01/24/20 11:30 History Source: Patient Exam Limitations: No Limitations - History of Present Illness Initial Comments: 01/24/20 11:31 HPI 54 YOM with h/o HLD presenting with sore throat x 4 days. has been able to tolerate PO intake and fluids. Denies fever, chills, nasal congestion, cough, eye pain/discharge, ear pain, tinnitis, decreased hearing, chest pain, SOB, palpitation, dizziness, weakness, N, V, D, abdominal pain, bladder and bowel problems, focal weakness/paresthesias, leg swelling/pain, rash. No sick contacts or travel. No new changes in medications. No suspicious food intake Allergies: None Past Medical History/PSH: as above Social history: Lives with family. No tobacco, ETOH or drug use. Meds: as documented in EMR Family history: noncontributory Review of systems Constitutional: no fevers or chills. No weakness HEENT: no headache or dizziness. No congestion. No visual/hearing disturbances. no eye pain or discharge, no ear pain or tinnitis. +sore throat. no odynophagia or dysphagia. CVS: no cp or syncope. Resp: no sob. No cough. Gastrointestinal: no abdominal pain, nausea, vomiting, diarrhea. Genitourinary: no urinary sx, hematuria. MUSCULOSKELETAL: No joint pain and swelling. No neck or back pain. SKIN: no redness or skin changes, no discharge, no rash. No wounds. Hematologic: no easy bruising/bleeding. NEUROLOGIC: No headache, dizziness, LOC or altered mental status. No weakness, numbness or tingling. Psych: no anxiety or depression Allergic/Immunologic: no allergies All other systems reviewed and negative, or as documented in HPI. Physical exam General: Well appearing, awake and alert, NAD. HEENT: NCAT, PERRL, EOMI, clear conjunctiva, anicteric, moist mucus membranes, oropharynx clear. Airway patent, normal phonation. Uvula midline. no tonsillar hypertrophy. No sinus tenderness, TM clear, no pinna tenderness to manipulation. Neck: neck supple, FROM Resp: CTAB, normal and even respirations, no respiratory distress CVS: RRR, no murmurs, 2+ peripheral pulses throughout, no peripheral edema Abdomen: soft, NTND, no rebound or guarding. Back: nontender, normal inspection and ROM MSK: no edema, DO x4, ROM intact. No clubbing or cyanosis. normal bulk and tone. Extremities: no calf tenderness Neuro: alert, oriented appropriately; no focal neurologic deficits Psych: Calm and cooperative Skin: warm and well perfused, cap refill <2 sec, normal color, no rash or skin discoloration. 01/24/20 11:40 Past History - Past Medical History Allergies/Adverse Reactions: Allergies Allergy/AdvReac Type Severity Reaction Status Date / Time No Known Allergies Allergy Verified 01/02/19 17:56 Home Medications: Ambulatory Orders Amoxicillin - [Amoxicillin 500mg Capsule -] 500 mg PO BID #20 capsule 01/02/19 Fenofibrate 150 mg PO DAILY 01/02/19 COPD: No Hypercholesterolemia: Yes - Immunization History Immunization Up to Date: Yes - Psycho Social/Smoking Cessation Hx Smoking History: Never smoked Have you smoked in the past 12 months: No Information on smoking cessation initiated: No Hx Alcohol Use: Yes (occasion) Drug/Substance Use Hx: No Substance Use Type: None *Physical Exam - Vital Signs Last Vital Signs Temp Pulse Resp BP Pulse Ox 99.2 F 88 20 125/74 99 01/24/20 11:23 01/24/20 11:23 01/24/20 11:23 01/24/20 11:23 01/24/20 11:23 Medical Decision Making - Medical Decision Making 01/24/20 11:41 Vital Signs Temp Pulse Resp BP Pulse Ox 99.2 F 88 20 125/74 99 01/24/20 11:23 01/24/20 11:23 01/24/20 11:23 01/24/20 11:23 01/24/20 11:23 vs reviewed, wnl. no fever, no systemic sx airway patent. breathing comfortable doubt bacterial infection no influenza sx. no covid 19 risk factors or sick contacts. no cp or sob. no respiratory distress strep test_is negative analgesia with ibuprofen, dexamethasone, reassess kimberly PO intake, comfortable in bed symptomatic improvement Pt to be discharged in stable condition. Patient made aware of clinical impression, treatment recommendations and disposition plan, return precautions discussed (including but not limited to new or persistent/worsening symptoms, pain, fevers, or signs of infection, chest pain, respiratory distress, inability to tolerate oral intake, dehydration, syncope, or neurologic changes). Follow up with PMD as recommended, follow up information provided, take medications as instructed for duration of time. continue with supportive care, avoid triggers and precipitants. All questions answered to patient's satisfaction and expressed understanding and comfort with this. At the time of discharge, the patient is alert, clinically improved, tolerating po and verbalizes understanding of instructions, satisfied with the care received and felt comfortable with the plan. Patient does not suffer from an acute life-threatening medical condition at this time and is safe for outpatient follow-up. 01/24/20 12:32 01/24/20 12:32 Discharge - Discharge Information Problems reviewed: Yes Clinical Impression/Diagnosis: Sore throat Condition: Good Disposition: HOME - Admission No - Follow up/Referral Referrals: [facility] [Provider Group] [facility] [Provider Group] - Patient Discharge Instructions Patient Printed Discharge Instructions: Sore Throat Additional Instructions: your strep test was negative this is likely a viral sore throat. salt water gargles, 1-2 spoonful of honey and warm lemon tea is appropriate as well for soothing qualities for sore throat/cough. minimize spread of infection given contagious nature, and cover your mouth and wash your hands adequately with soap and water. Stay well hydrated and rest. Cool air - walk around outdoors in the evening. May also try hot shower steam. This can alleviate the congestion and cough. You can also use Riccola - dual action with lemon/honey to soothe your throat and cough. Return precautions include respiratory distress, difficulty breathing, cyanosis, chest pain, lethargy, confusion, dehydration, high fevers or pain. - Post Discharge Activity
[2020-01-24] MEDS ORDERED: DEXAMETHASONE LIQUID 0.5 MG/5 ML PO ONE (11:39)
[2020-01-24] MEDS ORDERED: IBUPROFEN 600 MG TABLET (FP) PO ONE ×2 (11:39→11:42)
[2020-01-24] MEDS ORDERED: DEXAMETHASONE SOD PHOSPHATE 10 MG/1 ML VIAL ONE (11:42)
== END 2020-01-24 12:59 | disposition home or self-care (01) ==
LOC: FER 11:23
DX: R07.0 Pain in throat (principal); E78.00 Pure hypercholesterolemia, unspecified; E78.5 Hyperlipidemia, unspecified
CPT/HCPCS: 87070; 87077; 87880; 99284-25

== ENCOUNTER 2021-05-26 15:20 | Emergency (ER) | payer OTHER ==
[2021-05-26 15:32] VITALS: BP 137/80; PULSE 57; TEMP 99; BMI 22.1
[2021-05-26] MEDS ORDERED: predniSONE 20 MG TABLET (UD) PO ONE (15:39)
[2021-05-26] MEDS ORDERED: diphenhydrAMINE HCL 25 MG CAPSULE (FP) PO ONE ×2 (15:39→15:43)
[2021-05-26] MEDS ORDERED: predniSONE 20 MG TABLET (UD) ONE (15:43)
== END 2021-05-26 16:14 | disposition home or self-care (01) ==
LOC: FER 15:20 → EDSEX 15:20 → FER 16:14
DX: R21 Rash and other nonspecific skin eruption (principal); T78.40XA Allergy, unspecified, initial encounter
CPT/HCPCS: 99283-25

== ENCOUNTER 2021-05-31 15:00 | Emergency (ER) | payer OTHER ==
[2021-05-31 15:07] VITALS: BP 131/79; PULSE 78; TEMP 98.1; BMI 22.8
== END 2021-05-31 16:24 | disposition home or self-care (01) ==
LOC: JERFT 15:00 → JER 15:00 → JERFT 16:24
DX: R21 Rash and other nonspecific skin eruption (principal)
CPT/HCPCS: 99283-25